=== PATIENT | female | born 1965 | race Caucasian/White ===

== ENCOUNTER → 2017-10-23 | Outpatient (CLI) | payer OTHER ==
[~2017-10-23] MED LIST: LEVO500T47 PO; OXYC-307 PO
== END | disposition home or self-care (01) ==
LOC: WOUND 12:51
PROVIDERS: ATTEND Internal Medicine
DX: S80.862A Insect bite (nonvenomous), left lower leg, initial encounter (principal); L97.512 Non-pressure chronic ulcer of other part of right foot with fat layer exposed; I10 Essential (primary) hypertension; F17.210 Nicotine dependence, cigarettes, uncomplicated; Z90.710 Acquired absence of both cervix and uterus; W57.XXXA Bitten or stung by nonvenomous insect and other nonvenomous arthropods, initial encounter; Y93.89 Activity, other specified; Y92.89 Other specified places as the place of occurrence of the external cause; Y99.8 Other external cause status
CPT/HCPCS: 97597; 99215

== ENCOUNTER → 2017-10-30 | Outpatient (CLI) | payer OTHER | END | disposition home or self-care (01) | LOC: WOUND 14:29 | PROVIDERS: ATTEND Internal Medicine | DX: S80.862D Insect bite (nonvenomous), left lower leg, subsequent encounter (principal); L97.512 Non-pressure chronic ulcer of other part of right foot with fat layer exposed; I10 Essential (primary) hypertension; F17.210 Nicotine dependence, cigarettes, uncomplicated; Z90.710 Acquired absence of both cervix and uterus; W57.XXXD Bitten or stung by nonvenomous insect and other nonvenomous arthropods, subsequent encounter | CPT/HCPCS: 11042 ==

== ENCOUNTER → 2017-11-06 | Outpatient (CLI) | payer OTHER | END | disposition home or self-care (01) | LOC: WOUND 14:30 | PROVIDERS: ATTEND Internal Medicine | DX: S80.862D Insect bite (nonvenomous), left lower leg, subsequent encounter (principal); L97.512 Non-pressure chronic ulcer of other part of right foot with fat layer exposed; I10 Essential (primary) hypertension; F17.210 Nicotine dependence, cigarettes, uncomplicated; Z90.710 Acquired absence of both cervix and uterus; W57.XXXD Bitten or stung by nonvenomous insect and other nonvenomous arthropods, subsequent encounter | CPT/HCPCS: 97597 ==

== ENCOUNTER → 2017-11-13 | Outpatient (CLI) | payer OTHER | END | disposition home or self-care (01) | LOC: WOUND 14:54 | PROVIDERS: ATTEND Internal Medicine | DX: S80.862D Insect bite (nonvenomous), left lower leg, subsequent encounter (principal); L97.512 Non-pressure chronic ulcer of other part of right foot with fat layer exposed; I10 Essential (primary) hypertension; F17.290 Nicotine dependence, other tobacco product, uncomplicated; W57.XXXD Bitten or stung by nonvenomous insect and other nonvenomous arthropods, subsequent encounter | CPT/HCPCS: 99213 ==

== ENCOUNTER → 2017-11-20 | Outpatient (CLI) | payer OTHER | END | disposition home or self-care (01) | LOC: WOUND 14:23 | PROVIDERS: ATTEND Internal Medicine | DX: S80.862D Insect bite (nonvenomous), left lower leg, subsequent encounter (principal); L97.512 Non-pressure chronic ulcer of other part of right foot with fat layer exposed; I10 Essential (primary) hypertension; F17.210 Nicotine dependence, cigarettes, uncomplicated; Z90.710 Acquired absence of both cervix and uterus; W57.XXXD Bitten or stung by nonvenomous insect and other nonvenomous arthropods, subsequent encounter | CPT/HCPCS: 97597 ==

== ENCOUNTER → 2017-11-27 | Outpatient (CLI) | payer OTHER | END | disposition home or self-care (01) | LOC: WOUND 14:42 | PROVIDERS: ATTEND Internal Medicine | DX: S80.862D Insect bite (nonvenomous), left lower leg, subsequent encounter (principal); L97.512 Non-pressure chronic ulcer of other part of right foot with fat layer exposed; I10 Essential (primary) hypertension; F17.210 Nicotine dependence, cigarettes, uncomplicated; Z90.710 Acquired absence of both cervix and uterus; W57.XXXD Bitten or stung by nonvenomous insect and other nonvenomous arthropods, subsequent encounter | CPT/HCPCS: 97597 ==

== ENCOUNTER → 2017-12-02 | Outpatient (CLI) | payer OTHER | END | disposition home or self-care (01) | LOC: WOUND 14:30 | PROVIDERS: ATTEND Internal Medicine | DX: S80.862A Insect bite (nonvenomous), left lower leg, initial encounter (principal); L97.512 Non-pressure chronic ulcer of other part of right foot with fat layer exposed; I10 Essential (primary) hypertension; F17.210 Nicotine dependence, cigarettes, uncomplicated; Z90.710 Acquired absence of both cervix and uterus; W57.XXXA Bitten or stung by nonvenomous insect and other nonvenomous arthropods, initial encounter; Y93.89 Activity, other specified; Y92.89 Other specified places as the place of occurrence of the external cause; Y99.8 Other external cause status | CPT/HCPCS: 97597 ==

== ENCOUNTER → 2017-12-11 | Outpatient (CLI) | payer OTHER | END | disposition home or self-care (01) | LOC: WOUND 14:20 | PROVIDERS: ATTEND Internal Medicine | DX: S80.862D Insect bite (nonvenomous), left lower leg, subsequent encounter (principal); L97.512 Non-pressure chronic ulcer of other part of right foot with fat layer exposed; I10 Essential (primary) hypertension; F17.210 Nicotine dependence, cigarettes, uncomplicated; Z90.49 Acquired absence of other specified parts of digestive tract; W57.XXXD Bitten or stung by nonvenomous insect and other nonvenomous arthropods, subsequent encounter | CPT/HCPCS: 97597 ==

== ENCOUNTER → 2018-01-01 | Outpatient (CLI) | payer OTHER | END | disposition home or self-care (01) | LOC: WOUND 14:32 | PROVIDERS: ATTEND Internal Medicine | DX: L97.512 Non-pressure chronic ulcer of other part of right foot with fat layer exposed (principal); S80.862D Insect bite (nonvenomous), left lower leg, subsequent encounter; I10 Essential (primary) hypertension; F17.210 Nicotine dependence, cigarettes, uncomplicated; Z90.710 Acquired absence of both cervix and uterus; W57.XXXD Bitten or stung by nonvenomous insect and other nonvenomous arthropods, subsequent encounter | CPT/HCPCS: 97597 ==